=== PATIENT | female | born 1990 | race Caucasian/White ===

== ENCOUNTER 2021-01-29 20:08 | Emergency (ER) | payer OTHER ==
[2021-01-29] MEDS ORDERED: AUGMENTIN 875-1 EACH PO (21:27)
[2021-01-29] MEDS ORDERED: IBUPROFEN800 MG PO (21:27)
== END 2021-01-29 21:50 | disposition home or self-care (01) ==
LOC: FER 20:08
DX: K03.81 Cracked tooth (principal); R68.84 Jaw pain; K02.9 Dental caries, unspecified; I10 Essential (primary) hypertension; F17.200 Nicotine dependence, unspecified, uncomplicated
CPT/HCPCS: 99282; J1885; Q0163

== ENCOUNTER 2021-04-03 12:45 | Emergency (ER) | payer OTHER ==
[~2021-04-03 12:45] MED LIST: AUGMENTIN 875-1 EACH PO; IBUPROFEN800 MG PO
[2021-04-03 17:38] LABS: BASOPHIL 0.5 % (0-2); EOSINOPHIL 0.2 % (0-5); HGB 12.3 g/dl (12.5-16.0); LYMPHOCYTE 34.1 % (15-48); MCH 28.7 pg (25.0-31.0); MCHC 31.5 g/dL (32.0-36.0); MCV 91.1 fL (78.0-100.0); MONOCYTE 5.3 % (0-12); MPV 9.6 fL (6.0-9.5); NEUTROPHIL 59.6 % (41-80); NRBC 0; PLT 245 K/uL (150-400); RBC 4.28 M/uL (4.20-5.40); RDW 15.2 % (11.5-14.0); WBC 6.4 K/uL (4.0-10.5)
[2021-04-03 17:53] LABS: BUN/CREAT RATIO (CALC) 26.2 RATIO; CREATININE 0.8 mg/dL (0.51-0.95); POTASSIUM 3.7 mmol/L (3.5-5.1)
== END 2021-04-03 18:27 | disposition home or self-care (01) ==
LOC: FER 12:45
PROVIDERS: Nurse Practitioner Family
DX: G43.909 Migraine, unspecified, not intractable, without status migrainosus (principal)
CPT/HCPCS: 36415; 80048; 85025; J1100; J1200; J1885; J2405; J7030

== ENCOUNTER 2021-09-13 14:30 | Emergency (ER) | payer OTHER ==
[2021-09-13] MEDS ORDERED: AUGMENTIN 875-1 EACH PO ×2 (17:01→17:13)
[2021-09-13] MEDS ORDERED: ZOFRAN4 M1 PO (17:14)
== END 2021-09-13 17:14 | disposition home or self-care (01) ==
LOC: FER 14:30
DX: K04.7 Periapical abscess without sinus (principal)
CPT/HCPCS: 99282; J1885; J2405; J7030